=== PATIENT | male | born 1955 | race Two or more races ===

== ENCOUNTER 2020-03-17 09:27 | Outpatient (CLI) | payer OTHER ==
[~2020-03-17 09:27] MED LIST: ORPH100T PO; PERCOCET 5/3251 TAB PO; SYNTHROID88 MCG PO
== END 2020-03-17 09:39 | disposition home or self-care (01) ==
LOC: TOM 09:27
PROVIDERS: ATTEND Specialist
DX: K43.2 Incisional hernia without obstruction or gangrene (principal)

== ENCOUNTER 2020-08-29 15:22 | Outpatient (CLI) | payer OTHER ==
[2020-10-19] MEDS ORDERED: SYNTHROID100 MCG PO (10:14)
== END 2020-08-29 15:55 | disposition home or self-care (01) ==
LOC: PPH VACUNA 15:22
PROVIDERS: ATTEND Emergency Medicine Pediatric Emergency Medicine
DX: Z23 Encounter for immunization (principal)

== ENCOUNTER → 2020-09-19 07:00 | Outpatient (CLI) | payer OTHER ==
[~2020-09-19 07:00] MED LIST changes: +SYNTHROID100 MCG PO
== END | disposition home or self-care (01) ==
LOC: PPH VACUNA 07:00
PROVIDERS: ATTEND Emergency Medicine Pediatric Emergency Medicine
DX: Z23 Encounter for immunization (principal)

== ENCOUNTER 2020-10-26 05:51 | Day surgery (SDC) | payer OTHER | END 2020-10-26 17:35 | disposition home or self-care (01) | LOC: CIR.AMB 05:51 | PROVIDERS: ATTEND Specialist | DX: K42.9 Umbilical hernia without obstruction or gangrene (principal); Z20.822 Contact with and (suspected) exposure to COVID-19 ==

== ENCOUNTER 2021-02-16 11:41 | Outpatient (CLI) | payer OTHER | END 2021-02-16 11:46 | disposition home or self-care (01) | LOC: SONOGRAMA 11:41 | DX: M89.8X4 Other specified disorders of bone, hand (principal); M19.042 Primary osteoarthritis, left hand; E03.5 Myxedema coma; E04.2 Nontoxic multinodular goiter; J44.9 Chronic obstructive pulmonary disease, unspecified ==

== ENCOUNTER 2021-05-07 10:00 | Outpatient (CLI) | payer OTHER | END 2021-05-07 10:30 | disposition home or self-care (01) | LOC: PPH VACUNA 10:00 | PROVIDERS: ATTEND Emergency Medicine Pediatric Emergency Medicine | DX: Z23 Encounter for immunization (principal) ==

== ENCOUNTER 2021-05-31 11:17 | Outpatient (CLI) | payer OTHER | END 2021-05-31 11:21 | disposition home or self-care (01) | LOC: SONOGRAMA 11:17 | PROVIDERS: ATTEND Pathology Anatomic Pathology & Clinical Pathology | DX: D34 Benign neoplasm of thyroid gland (principal); E06.3 Autoimmune thyroiditis ==

== ENCOUNTER 2021-09-27 19:05 | Emergency (ER) | payer OTHER ==
[~2021-09-27] VITALS: Ht 162.6 cm; Wt 81.6 kg
[2021-09-27] MEDS ORDERED: TOPROL XL50 M1 (19:29)
[2021-09-27] MEDS ORDERED: LOSARTAN POTASS50 MG (19:29)
== END 2021-09-27 21:39 | disposition home or self-care (01) ==
LOC: ER 19:05
DX: S51.812A Laceration without foreign body of left forearm, initial encounter (principal); W26.8XXA Contact with other sharp object(s), not elsewhere classified, initial encounter; Y93.89 Activity, other specified; Y92.019 Unspecified place in single-family (private) house as the place of occurrence of the external cause; Y99.9 Unspecified external cause status; Z91.013 Allergy to seafood

== ENCOUNTER → 2021-10-05 | Emergency (ER) | payer OTHER ==
[~2021-10-05] VITALS: Ht 162.6 cm; Wt 77.1 kg
[~2021-10-05] MED LIST changes: +LOSARTAN POTASS50 MG; +TOPROL XL50 M1
== END | disposition home or self-care (01) ==
LOC: ER 12:25
DX: Z02.9 Encounter for administrative examinations, unspecified (principal)

== ENCOUNTER 2021-10-08 06:12 | Emergency (ER) | payer OTHER ==
[~2021-10-08] VITALS: Ht 162.6 cm; Wt 77.1 kg
== END 2021-10-08 07:45 ==
LOC: ER 06:12
DX: Z48.02 Encounter for removal of sutures (principal)

== ENCOUNTER 2021-12-11 08:00 | Outpatient (CLI) | payer OTHER | END 2021-12-11 08:30 | disposition home or self-care (01) | LOC: PPH VACUNA 08:00 | PROVIDERS: ATTEND Emergency Medicine Pediatric Emergency Medicine | DX: Z23 Encounter for immunization (principal) ==

== ENCOUNTER 2022-07-24 10:45 | Outpatient (CLI) | payer OTHER ==
[~2022-07-24 10:45] MED LIST changes: +FENOFIBRATE145 MG PO
== END 2022-07-24 10:55 | disposition home or self-care (01) ==
LOC: PPH VACUNA 10:45
PROVIDERS: ATTEND Emergency Medicine Pediatric Emergency Medicine
DX: Z23 Encounter for immunization (principal)